=== PATIENT | male | born 1950 | race Caucasian/White ===

== ENCOUNTER 2018-08-12 05:43 | Emergency (ER) | payer MEDICARE, MEDICAID ==
[~2018-08-12] VITALS: Ht 152.4 cm; Wt 111.3 kg
[2018-08-12 05:47] VITALS: BP 137/69
--- NOTE | 2018-08-12 06:22 | NUR ---
pt to room from triage with c/o ear pain bilat, c/o sob due to walking as he is homeless, in nad at this time
[2018-08-12] MEDS ORDERED: AMOXICILLIN 500 MG CAPSULE PO ONE (06:30)
[2018-08-12] MEDS ORDERED: ALBUTEROL/IPRATROPIUM 2.5MG/0.5MG, 3 ML NPPB ONE (06:30)
[2018-08-12] MEDS ORDERED: ALBUTEROL/IPRATROPIUM 2.5MG/0.5MG, 3 ML ONE (06:45)
--- NOTE | 2018-08-12 07:28 | NUR ---
Recieved report from LEONA Garcia. All questions answered. NADN. Patient given discharge instructions and they have confirmed that they understand the instructions. Patient ambulatory with steady gait. Pt left with discharge paperwork, prescriptions, and all personal belongings.
== END 2018-08-12 07:35 | disposition home or self-care (01) ==
LOC: ED 07:29
DX: H66.001 Acute suppurative otitis media without spontaneous rupture of ear drum, right ear (principal); J43.9 Emphysema, unspecified; I10 Essential (primary) hypertension; E11.9 Type 2 diabetes mellitus without complications; E78.00 Pure hypercholesterolemia, unspecified
CPT/HCPCS: 93005; 94640; 99283; J7620

== ENCOUNTER 2018-08-25 20:25 | Inpatient (IN) | payer MEDICARE, MEDICAID ==
[~2018-08-25] VITALS: Ht 170.2 cm; Wt 102.3 kg
--- NOTE | 2018-08-25 20:33 | NUR ---
BIB [facility] FOR SOB X2 HRS, INHALER NOT HELPING. PT RECEIVED ALBUTEROL TX AND IS CURRENTLY ON A DUONEB TX. WHEEZING NOTED ALL MCCRAY. NO DISTRESS NOTED, SKIN PWD, PT PLACED ON CARDIAC MOINTOR, CALL LIGHT IN REACH
--- NOTE | 2018-08-25 20:55 | NUR ---
IV ACCESS OBTAINED, PT MEDICATED PER eMAR. NO DSTRESS NOTED
[2018-08-25] MEDS ORDERED: SODIUM CHLORIDE FLUSH 10ML SYR IVF ONE (21:00)
[2018-08-25 21:10] LABS: BASOPHILS # (AUTO) 0.05 x10^3/uL (0-0.1); BASOPHILS % (AUTO) 1 % (0-1); EOSINOPHILS # (AUTO) 0.13 x10^3/uL (0-0.4); EOSINOPHILS % (AUTO) 1 % (1-7); LYMPHOCYTES # (AUTO) 2.44 x10^3/uL (1-3.4); LYMPHOCYTES % (AUTO) 27 % (22-44); MD NO; MEAN CORPUSCULAR HEMOGLOBIN 28.2 pg (27.5-34.5); MEAN CORPUSCULAR HGB CONC 32.9 g/dL (33.2-36.2); MEAN CORPUSCULAR VOLUME 85.5 fL (81-97); MEAN PLATELET VOLUME 8.5 fL (7.4-10.4); MONOCYTES % (AUTO) 8 % (2-9); NEUTROPHILS # (AUTO) 5.83 x10^3/uL (1.8-6.8); NEUTROPHILS % (AUTO) 64 % (42-75); PLATELET COUNT 271 x10^3/uL (130-400); RED BLOOD COUNT 3.87 x10^6/uL (4.38-5.82); RED CELL DISTRIBUTION WIDTH 18.1 % (9.4-14.8)
[2018-08-25 21:19] LABS: ALBUMIN 3.3 g/dL (3.4-5.0); ANION GAP 7 mmol/L (5-15); CALCIUM 7.1 mg/dL (8.5-10.1); CHLORIDE 105 mmol/L (98-107)
[2018-08-25 21:24] LABS: ALANINE AMINOTRANSFERASE 14 U/L (12-78); ALKALINE PHOSPHATASE 88 U/L (45-117); BILIRUBIN,TOTAL 0.4 mg/dL (0.2-1.0); CREATININE 1.21 mg/dL (0.7-1.3); TOTAL PROTEIN 7.4 g/dL (6.4-8.2); TROPONIN I 0.021 ng/mL (0.000-0.045)
--- NOTE | 2018-08-25 21:30 | NUR ---
PT PLACED ON 2L O2. SAT DROPPED TO 79%
[2018-08-25] MEDS ORDERED: POTASSIUM CHLORIDE 20 MEQ TAB.ER.PRT PO ONE (22:00)
[2018-08-25] MEDS ORDERED: SODIUM CHLORIDE FLUSH 10ML SYR IVF PRN (23:00)
[2018-08-25] MEDS ORDERED: ACETAMINOPHEN 325 MG TABLET PO PRN (23:30)
[2018-08-25] MEDS ORDERED: POLYETHYLENE GLYCOL 17 GM PACKET PO PRN (23:30)
[2018-08-25] MEDS ORDERED: BISACODYL 10 MG SUPP PR PRN (23:30)
[2018-08-25] MEDS ORDERED: ONDANSETRON ODT 4 MG PO PRN (23:30)
[2018-08-25] MEDS ORDERED: FUROSEMIDE 40 MG/4 ML IV ONE (23:30)
--- NOTE | 2018-08-25 23:53 | NUR ---
REPORT GIVEN TO LEONA AG
[2018-08-26 00:31] VITALS: BP 149/78
[2018-08-26] MEDS: methylPREDNISolone SOD SUCC 125 MG/2 ML IVPush SCH ×4 (01:31→23:14)
[2018-08-26] MEDS: HEPARIN 5,000 UNITS/ML, 1ML SQ SCH ×4 (01:31→23:14)
[2018-08-26] MEDS: SODIUM CHLORIDE FLUSH 10ML SYR IVF SCH ×3 (01:32→20:51)
[2018-08-26] MEDS: NICOTINE 21 MG/24 HR PATCH.TD24 TD SCH ×3 (01:32→23:16)
[2018-08-26] MEDS ORDERED: ALBUTEROL/IPRATROPIUM 2.5MG/0.5MG, 3 ML ONE (03:08)
[2018-08-26 04:58] LABS: MEAN CORPUSCULAR HEMOGLOBIN 28.7 pg (27.5-34.5); MEAN CORPUSCULAR HGB CONC 33.1 g/dL (33.2-36.2); MEAN CORPUSCULAR VOLUME 86.4 fL (81-97); MEAN PLATELET VOLUME 8.8 fL (7.4-10.4); PLATELET COUNT 227 x10^3/uL (130-400)
[2018-08-26 04:59] LABS: ALANINE AMINOTRANSFERASE 14 U/L (12-78); ALBUMIN 3.1 g/dL (3.4-5.0); ANION GAP 6 mmol/L (5-15); CHLORIDE 104 mmol/L (98-107); CREATININE 1.11 mg/dL (0.7-1.3)
[2018-08-26 05:02] LABS: ALKALINE PHOSPHATASE 89 U/L (45-117); BILIRUBIN,TOTAL 0.3 mg/dL (0.2-1.0); TOTAL PROTEIN 7.3 g/dL (6.4-8.2)
[2018-08-26] MEDS: CARVEDILOL 6.25 MG TABLET PO SCH ×2 (05:31→18:09)
[2018-08-26 05:40] LABS: MD SCAN
[2018-08-26 05:41] LABS: BASOPHILS % (AUTO) 0 % (0-1); EOSINOPHILS # (AUTO) 0.09 x10^3/uL (0-0.4); EOSINOPHILS % (AUTO) 1 % (1-7); LYMPHOCYTES # (AUTO) 0.52 x10^3/uL (1-3.4); LYMPHOCYTES % (AUTO) 8 % (22-44); MONOCYTES # (AUTO) 0.03 x10^3/uL (0.2-0.8); MONOCYTES % (AUTO) 1 % (2-9); NEUTROPHILS % (AUTO) 90 % (42-75)
[2018-08-26] MEDS: ALBUTEROL/IPRATROPIUM 2.5MG/0.5MG, 3 ML NPPB SCH ×4 (07:04→20:00)
[2018-08-26 07:10] VITALS: BP 120/68
[2018-08-26] MEDS: POTASSIUM CHLORIDE 20 MEQ TAB.ER.PRT PO SCH ×2 (07:41→16:46)
[2018-08-26] MEDS ORDERED: GABA600T7 PO (07:54)
[2018-08-26] MEDS ORDERED: ATOR40TA78 PO (07:54)
[2018-08-26] MEDS ORDERED: AMOX1TAB12 PO (07:54)
[2018-08-26] MEDS ORDERED: FURO20TA3 PO (07:54)
[2018-08-26] MEDS ORDERED: ENAL20TA PO (07:54)
[2018-08-26] MEDS ORDERED: CLOP75TA PO (07:54)
[2018-08-26] MEDS ORDERED: ASPI81TA45 PO (07:54)
[2018-08-26] MEDS ORDERED: OMEP-110 PO (07:54)
[2018-08-26] MEDS ORDERED: TIOT18CA INH (07:54)
[2018-08-26] MEDS ORDERED: FLUT1AER INH (07:54)
[2018-08-26] MEDS ORDERED: METF500T17 PO (07:54)
[2018-08-26] MEDS ORDERED: FINA5TAB4 PO (07:54)
[2018-08-26] MEDS ORDERED: TAMS-11 PO (07:58)
[2018-08-26] MEDS ORDERED: ROPI0.5T2 PO ×2 (07:58)
[2018-08-26] MEDS: LISINOPRIL 5 MG TABLET PO SCH (08:49)
[2018-08-26] MEDS: SENNA/DOCUSATE TABLET PO SCH (08:50)
[2018-08-26] MEDS: FUROSEMIDE 40 MG/4 ML IV SCH ×2 (11:45→16:47)
[2018-08-26] MEDS ORDERED: POTASSIUM CHLORIDE 20 MEQ TAB.ER.PRT PO ONE (12:00)
[2018-08-26] MEDS ORDERED: TEMPLATE NON-FORMULARY MED. (Tiotropium Bromide** (Spiriva**) 18 MCG) INH SCH (12:00)
[2018-08-26] MEDS: ROPINIROLE 0.5MG TABLET PO SCH ×2 (12:00→20:52)
[2018-08-26] MEDS ORDERED: FLUTICASONE/VILANTEROL 100-25MCG/INH INH SCH (12:00)
[2018-08-26] MEDS ORDERED: AMOXICILLIN/CLAV 875-125MG TABLET PO SCH (12:00)
[2018-08-26] MEDS: ROPINIROLE 1MG TABLET PO SCH (12:47)
[2018-08-26] MEDS: GABAPENTIN 300 MG CAPSULE PO SCH ×3 (12:47→20:52)
[2018-08-26] MEDS: metFORMIN 500 MG TABLET PO SCH ×2 (12:47→20:52)
[2018-08-26] MEDS: OMEPRAZOLE 20 MG CAPSULE.DR PO SCH (12:47)
[2018-08-26] MEDS: CLOPIDOGREL 75 MG TABLET PO SCH (12:48)
[2018-08-26] MEDS: TAMSULOSIN 0.4 MG CAP.ER.24H PO SCH (12:48)
[2018-08-26] MEDS: FINASTERIDE 5 MG TABLET PO SCH (12:48)
[2018-08-26] MEDS: ASPIRIN 81 MG TABLET EC PO SCH (12:48)
[2018-08-26] MEDS: ENALAPRIL 20MG TABLET PO SCH (12:48)
[2018-08-26 13:21] LABS: TROPONIN I < 0.015 ng/mL (0.000-0.045)
[2018-08-26 13:29] LABS: HEMOGLOBIN A1C 6.2 % (4.2-6.3)
[2018-08-26 13:35] VITALS: BP 141/67
[2018-08-26] MEDS ORDERED: POTASSIUM CHLORIDE 20 MEQ TAB.ER.PRT PO SCH (17:00)
[2018-08-26 18:29] LABS: TROPONIN I < 0.015 ng/mL (0.000-0.045)
[2018-08-26 19:42] VITALS: BP 135/61
[2018-08-26] MEDS: AMOXICILLIN/CLAV 875-125MG TABLET HOMEMEDPO SCH (20:51)
[2018-08-26] MEDS: ATORVASTATIN 40 MG TABLET PO SCH (20:52)
[2018-08-27 00:46] VITALS: BP 151/71
[2018-08-27] MEDS: CARVEDILOL 6.25 MG TABLET PO SCH ×2 (05:15→17:38)
[2018-08-27 06:12] LABS: ANION GAP 5 mmol/L (5-15); BASOPHILS % (AUTO) 0 % (0-1); CALCIUM 7.4 mg/dL (8.5-10.1); CHLORIDE 106 mmol/L (98-107); CREATININE 1.17 mg/dL (0.7-1.3); EOSINOPHILS # (AUTO) 0.09 x10^3/uL (0-0.4); EOSINOPHILS % (AUTO) 1 % (1-7); LYMPHOCYTES # (AUTO) 0.72 x10^3/uL (1-3.4); LYMPHOCYTES % (AUTO) 8 % (22-44); MD NO; MEAN CORPUSCULAR HEMOGLOBIN 28.1 pg (27.5-34.5); MEAN CORPUSCULAR HGB CONC 32.5 g/dL (33.2-36.2); MEAN CORPUSCULAR VOLUME 86.6 fL (81-97); MEAN PLATELET VOLUME 9.1 fL (7.4-10.4); MONOCYTES % (AUTO) 1 % (2-9); NEUTROPHILS # (AUTO) 8.44 x10^3/uL (1.8-6.8); NEUTROPHILS % (AUTO) 90 % (42-75); PLATELET COUNT 220 x10^3/uL (130-400); RED BLOOD COUNT 3.62 x10^6/uL (4.38-5.82); RED CELL DISTRIBUTION WIDTH 18.3 % (9.4-14.8)
[2018-08-27] MEDS: ALBUTEROL/IPRATROPIUM 2.5MG/0.5MG, 3 ML NPPB SCH ×4 (07:15→18:44)
[2018-08-27 07:25] VITALS: BP 131/69
[2018-08-27] MEDS: SENNA/DOCUSATE TABLET PO SCH (09:00)
[2018-08-27] MEDS ORDERED: FLUTICASONE/VILANTEROL 100-25MCG/INH INH SCH (09:00)
[2018-08-27] MEDS: AMOXICILLIN/CLAV 875-125MG TABLET HOMEMEDPO SCH ×2 (09:00→19:39)
[2018-08-27] MEDS: GABAPENTIN 300 MG CAPSULE PO SCH ×3 (09:03→19:40)
[2018-08-27] MEDS: TAMSULOSIN 0.4 MG CAP.ER.24H PO SCH (09:03)
[2018-08-27] MEDS: CLOPIDOGREL 75 MG TABLET PO SCH (09:04)
[2018-08-27] MEDS: ENALAPRIL 20MG TABLET PO SCH (09:04)
[2018-08-27] MEDS: metFORMIN 500 MG TABLET PO SCH ×2 (09:04→19:40)
[2018-08-27] MEDS: FINASTERIDE 5 MG TABLET PO SCH (09:04)
[2018-08-27] MEDS: HEPARIN 5,000 UNITS/ML, 1ML SQ SCH ×4 (09:04→23:37)
[2018-08-27] MEDS: OMEPRAZOLE 20 MG CAPSULE.DR PO SCH (09:04)
[2018-08-27] MEDS: POTASSIUM CHLORIDE 20 MEQ TAB.ER.PRT PO SCH ×2 (09:05→16:31)
[2018-08-27] MEDS: ROPINIROLE 0.5MG TABLET PO SCH ×2 (09:05→19:40)
[2018-08-27] MEDS: FUROSEMIDE 40 MG/4 ML IV SCH ×2 (09:05→16:32)
[2018-08-27] MEDS: LISINOPRIL 5 MG TABLET PO SCH (09:05)
[2018-08-27] MEDS: SODIUM CHLORIDE FLUSH 10ML SYR IVF SCH ×2 (09:06→19:40)
[2018-08-27] MEDS: ASPIRIN 81 MG TABLET EC PO SCH (09:06)
[2018-08-27] MEDS ORDERED: MAGNESIUM SULFATE PMX 4GM/100M 100 ML IV ONE (10:00)
[2018-08-27] MEDS: methylPREDNISolone SOD SUCC 125 MG/2 ML IVPush SCH ×2 (11:37→23:38)
[2018-08-27] MEDS: ROPINIROLE 1MG TABLET PO SCH (11:39)
[2018-08-27 12:40] VITALS: BP 123/62
[2018-08-27 19:19] VITALS: BP 159/83
[2018-08-27] MEDS: ATORVASTATIN 40 MG TABLET PO SCH (19:40)
[2018-08-27] MEDS: NICOTINE 21 MG/24 HR PATCH.TD24 TD SCH (23:30)
[2018-08-28 04:00] VITALS: BP 153/69
[2018-08-28] MEDS: CARVEDILOL 6.25 MG TABLET PO SCH ×2 (05:53→16:22)
[2018-08-28 06:52] LABS: MEAN CORPUSCULAR HEMOGLOBIN 27.5 pg (27.5-34.5); MEAN CORPUSCULAR HGB CONC 31.9 g/dL (33.2-36.2); MEAN CORPUSCULAR VOLUME 86.2 fL (81-97); MEAN PLATELET VOLUME 9.3 fL (7.4-10.4); PLATELET COUNT 253 x10^3/uL (130-400); RED BLOOD COUNT 3.79 x10^6/uL (4.38-5.82); RED CELL DISTRIBUTION WIDTH 18.5 % (9.4-14.8)
[2018-08-28 07:00] LABS: ANION GAP 4 mmol/L (5-15); CALCIUM 8.5 mg/dL (8.5-10.1); CHLORIDE 105 mmol/L (98-107); CREATININE 1.19 mg/dL (0.7-1.3)
[2018-08-28] MEDS: ALBUTEROL/IPRATROPIUM 2.5MG/0.5MG, 3 ML NPPB SCH ×4 (07:00→20:00)
[2018-08-28 07:24] LABS: BASOPHILS % (AUTO) 0 % (0-1); EOSINOPHILS % (AUTO) 0 % (1-7); LYMPHOCYTES # (AUTO) 0.46 x10^3/uL (1-3.4); LYMPHOCYTES % (AUTO) 5 % (22-44); MD SCAN; MONOCYTES # (AUTO) 0.09 x10^3/uL (0.2-0.8); MONOCYTES % (AUTO) 1 % (2-9); NEUTROPHILS % (AUTO) 95 % (42-75)
[2018-08-28] MEDS: HEPARIN 5,000 UNITS/ML, 1ML SQ SCH ×2 (07:30→16:20)
[2018-08-28 07:33] VITALS: BP 164/71
[2018-08-28] MEDS: SENNA/DOCUSATE TABLET PO SCH (09:00)
[2018-08-28] MEDS: SODIUM CHLORIDE FLUSH 10ML SYR IVF SCH ×2 (09:00→20:53)
[2018-08-28] MEDS: ROPINIROLE 0.5MG TABLET PO SCH ×2 (09:00→20:53)
[2018-08-28] MEDS: ENALAPRIL 20MG TABLET PO SCH (09:47)
[2018-08-28] MEDS: CLOPIDOGREL 75 MG TABLET PO SCH (09:47)
[2018-08-28] MEDS: GABAPENTIN 300 MG CAPSULE PO SCH ×3 (09:48→20:53)
[2018-08-28] MEDS: metFORMIN 500 MG TABLET PO SCH ×2 (09:48→20:53)
[2018-08-28] MEDS: AMOXICILLIN/CLAV 875-125MG TABLET HOMEMEDPO SCH ×2 (09:48→20:53)
[2018-08-28] MEDS: TAMSULOSIN 0.4 MG CAP.ER.24H PO SCH (09:49)
[2018-08-28] MEDS: ASPIRIN 81 MG TABLET EC PO SCH (09:49)
[2018-08-28] MEDS ORDERED: ROPINIROLE 0.25MG TABLET ONE ×2 (09:53→20:48)
[2018-08-28] MEDS: FUROSEMIDE 40 MG/4 ML IV SCH (10:58)
[2018-08-28] MEDS: OMEPRAZOLE 20 MG CAPSULE.DR PO SCH (10:59)
[2018-08-28] MEDS: POTASSIUM CHLORIDE 20 MEQ TAB.ER.PRT PO SCH (10:59)
[2018-08-28] MEDS: LISINOPRIL 5 MG TABLET PO SCH (10:59)
[2018-08-28] MEDS: methylPREDNISolone SOD SUCC 125 MG/2 ML IVPush SCH (11:00)
[2018-08-28] MEDS ORDERED: FLUTICASONE/VILANTEROL 100-25MCG/INH INH SCH (11:14)
[2018-08-28] MEDS: FINASTERIDE 5 MG TABLET PO SCH (11:26)
[2018-08-28] MEDS: ROPINIROLE 1MG TABLET PO SCH (12:38)
[2018-08-28 13:20] VITALS: BP 160/70
[2018-08-28] MEDS: FUROSEMIDE 40 MG TABLET PO SCH (16:22)
[2018-08-28 20:01] VITALS: BP 158/72
[2018-08-28] MEDS: ATORVASTATIN 40 MG TABLET PO SCH (20:52)
[2018-08-28] MEDS ORDERED: LISINOPRIL 5 MG TABLET PO SCH (21:00)
[2018-08-28] MEDS: NICOTINE 21 MG/24 HR PATCH.TD24 TD SCH (23:09)
[2018-08-28] MEDS ORDERED: methylPREDNISolone SOD SUCC 125 MG/2 ML IVPush SCH (23:30)
[2018-08-29] MEDS: HEPARIN 5,000 UNITS/ML, 1ML SQ SCH ×3 (00:30→16:30)
[2018-08-29 03:38] LABS: BASOPHILS # (AUTO) 0.01 x10^3/uL (0-0.1); BASOPHILS % (AUTO) 0 % (0-1); EOSINOPHILS % (AUTO) 0 % (1-7); LYMPHOCYTES # (AUTO) 0.56 x10^3/uL (1-3.4); LYMPHOCYTES % (AUTO) 6 % (22-44); MD NO; MEAN CORPUSCULAR HEMOGLOBIN 28.3 pg (27.5-34.5); MEAN CORPUSCULAR HGB CONC 32.8 g/dL (33.2-36.2); MEAN CORPUSCULAR VOLUME 86.1 fL (81-97); MEAN PLATELET VOLUME 9.5 fL (7.4-10.4); MONOCYTES # (AUTO) 0.19 x10^3/uL (0.2-0.8); MONOCYTES % (AUTO) 2 % (2-9); NEUTROPHILS # (AUTO) 8.43 x10^3/uL (1.8-6.8); NEUTROPHILS % (AUTO) 92 % (42-75); PLATELET COUNT 233 x10^3/uL (130-400); RED BLOOD COUNT 3.73 x10^6/uL (4.38-5.82)
[2018-08-29 03:52] LABS: ANION GAP 4 mmol/L (5-15); CALCIUM 8.7 mg/dL (8.5-10.1); CHLORIDE 106 mmol/L (98-107); CREATININE 1.27 mg/dL (0.7-1.3)
[2018-08-29 03:55] VITALS: BP 170/75
[2018-08-29 04:37] VITALS: BP 166/70
[2018-08-29] MEDS: CARVEDILOL 6.25 MG TABLET PO SCH (04:40)
[2018-08-29] MEDS ORDERED: PANTOPRAZOLE 20MG TABLET PO SCH (06:00)
[2018-08-29] MEDS: ALBUTEROL/IPRATROPIUM 2.5MG/0.5MG, 3 ML NPPB SCH ×3 (07:20→15:30)
[2018-08-29 07:45] VITALS: BP 164/84
[2018-08-29] MEDS: FUROSEMIDE 40 MG TABLET PO SCH (08:00)
[2018-08-29] MEDS: SENNA/DOCUSATE TABLET PO SCH ×2 (09:00→09:21)
[2018-08-29] MEDS: ROPINIROLE 0.5MG TABLET PO SCH (09:00)
[2018-08-29] MEDS ORDERED: ROPINIROLE 0.25MG TABLET ONE (09:14)
[2018-08-29] MEDS: TAMSULOSIN 0.4 MG CAP.ER.24H PO SCH (09:21)
[2018-08-29] MEDS: CLOPIDOGREL 75 MG TABLET PO SCH (09:21)
[2018-08-29] MEDS: GABAPENTIN 300 MG CAPSULE PO SCH ×2 (09:21→16:16)
[2018-08-29] MEDS: ENALAPRIL 20MG TABLET PO SCH (09:21)
[2018-08-29] MEDS: ASPIRIN 81 MG TABLET EC PO SCH (09:21)
[2018-08-29] MEDS: metFORMIN 500 MG TABLET PO SCH (09:21)
[2018-08-29] MEDS: AMOXICILLIN/CLAV 875-125MG TABLET HOMEMEDPO SCH (09:21)
[2018-08-29] MEDS: FINASTERIDE 5 MG TABLET PO SCH (09:21)
[2018-08-29] MEDS: SODIUM CHLORIDE FLUSH 10ML SYR IVF SCH (09:37)
[2018-08-29] MEDS: ROPINIROLE 1MG TABLET PO SCH (12:24)
[2018-08-29 13:40] VITALS: BP 145/74
[2018-08-29] MEDS ORDERED: PRED20TA PO (15:04)
[2018-08-29] MEDS ORDERED: ENAL20TA PO (15:04)
[2018-08-29] MEDS ORDERED: CARV6.2512 PO (15:04)
[2018-08-29] MEDS ORDERED: FUROSEMIDE 40 MG TABLET PO SCH (17:00)
[2018-08-29] MEDS ORDERED: ENALAPRIL 20MG TABLET PO SCH (21:00)
== END 2018-08-29 18:00 | disposition home or self-care (01) | DRG 291 ==
LOC: ED 20:56 → EDIP 23:18 → 5SO 08-26 00:13 → 3NW 08-28 19:55
PROVIDERS: ADMIT Family Medicine; ATTEND Family Medicine
DX: I11.0 Hypertensive heart disease with heart failure (principal); J96.21 Acute and chronic respiratory failure with hypoxia; J44.1 Chronic obstructive pulmonary disease with (acute) exacerbation; Z79.84 Long term (current) use of oral hypoglycemic drugs; E11.9 Type 2 diabetes mellitus without complications; I50.33 Acute on chronic diastolic (congestive) heart failure; E78.00 Pure hypercholesterolemia, unspecified; E78.5 Hyperlipidemia, unspecified; E83.42 Hypomagnesemia; E87.6 Hypokalemia; F17.210 Nicotine dependence, cigarettes, uncomplicated; I25.10 Atherosclerotic heart disease of native coronary artery without angina pectoris; I25.2 Old myocardial infarction; Z59.0 Homelessness; Z80.9 Family history of malignant neoplasm, unspecified; Z82.49 Family history of ischemic heart disease and other diseases of the circulatory system; Z91.14 Patient's other noncompliance with medication regimen; Z95.5 Presence of coronary angioplasty implant and graft
CPT/HCPCS: 36415; 71045; 80048; 80053; 83036; 83735; 83880; 84484; 85025; 87205; 93005; 93306; 94640; 99285; G0378; J1644; J1940; J7620; J2930; J3475; J7512